=== PATIENT | female | born 1955 | race Caucasian/White ===

== ENCOUNTER 2017-12-15 05:21 | Day surgery (SDC) | payer OTHER ==
[~2017-12-15] VITALS: Ht 167.6 cm; Wt 81.6 kg
--- NOTE | ~2017-12-15 | PATH ---
[facility] [address] [place] [address] PATHOLOGY RPT PROCEDURE Name: TRAVONYNES KERRY Room #: DEP [facility] M.R.#: [id number] Admission: 12/15/17 Date of : 59 Discharge: 12/15/17 Report #: [id number] Path Case #: [id number] [facility] Accession Number: [id number] . 01 Material submitted: . EXCISION MASS EXCISION LIPOMA RIGHT LOWER BACK . 01 Clinician provided ICD-10: R22.9 . 01 Clinical history: . Back mass . 02 Diagnosis: Mature adipose tissue, mass/lipoma right lower back, excision: - Compatible with a lipoma. (IUV:stalin; 12/16/2017) QMS/12/16/2017 . 02 Electronically signed: . Carmela Becerra MD, Pathologist NPI- [id number] . 01 Gross description: . The specimen is received in formalin, labeled "Ynes Cool, mass/lipoma right lower back" and consists of an encapsulated segment of yellow-orange adipose tissue measuring 8.5 x 4.4 x 2.1 cm. It is inked black and sectioned to reveal yellow cut surfaces with multifocal white streaks measuring up to 1.3 cm. No masses are identified and territory sales representative sections are submitted in A1-A4. (SDY; 12/15/2017) SYU/SYU . 02 Pathologist provided ICD-10: D17.79 . 02 CPT . 138645 Specimen Comment: A courtesy copy of this report has been sent to Specimen Comment: [phone]. Specimen Comment: Report sent to Performed at: [address] [id number] MD Alonso Vu MD Phone: [phone] Performed at: 02 [facility] [address] [place] [address] PATHOLOGY RPT PROCEDURE Name: YNES COOL KERRY Room #: DEP [facility]..#: [id number] Admission: 12/15/17 Date of : 59 Discharge: 12/15/17 Report #: [id number] Path Case #: [id number] [address] [place], [place] [id number] MD Carmela Becerra MD Phone: [phone]
--- NOTE | ~2017-12-15 | EKG ---
[address] [address] ELECTROCARDIOGRAM REPORT Name: JUAN COOLALEJANDRA PAYNE Room #: DEP [facility].#: [id number] Admission: 12/15/17 Attend Phys: Jacobo Hansen MD Discharge: 12/15/17 Date of : 59 Report #: [id number] THIS REPORT FOR: //name// [facility] Test Date: 2017-12-15 Test Time: 07:05:50 Pat Name: LAKSHMI COOL Department: Room: 150 5 Gender: F Truck Driver Supervisor: AYDIN : 1955 Requested By: Jacobo Hansen Order Number: [id number] MD: Lyndon Beckwith Measurements Intervals [place] Rate: 63 P: 63 AL: 210 QRS: 46 QRSD: 92 T: 44 QT: 452 QTc: 463 Interpretive Statements Sinus rhythm Prolonged AL interval No previous ECG available for comparison Electronically Signed On 12-15-2017 17:46:17 CDT by Lyndon Beckwith [email or web address] <ELECTRONICALLY SIGNED> By: Lyndon Beckwith MD 12/15/17 1746 0705 4 Lyndon Beckwith MD /MELINDA
--- NOTE | ~2017-12-15 | O ---
[facility] [place] [address] OPERATIVE REPORT Name: LAKSHMI COOL KERRY Room #: DEP [facility] M.R.#: [id number] Admission: 12/15/17 Attend Phys: Jacobo Hansen MD Discharge: 12/15/17 Date of : 59 Report #: [id number] THIS REPORT FOR: //name// CC: Yang Hansen DATE OF SERVICE: 12/15/2017 PREOPERATIVE DIAGNOSIS: Right back mass/lipoma measuring 10 x 8 cm. POSTOPERATIVE DIAGNOSIS: Right back mass/lipoma measuring 10 x 8 cm. PROCEDURES PERFORMED: Excision of right back mass/lipoma. ANESTHESIA: IV sedation, 0.25% Marcaine locally. COMPLICATIONS: None. ESTIMATED BLOOD LOSS: 5 mL. DESCRIPTION OF PROCEDURE: With the patient in the lateral position, the right side was tilted up. Skin was prepped and draped in sterile fashion. Timeout was performed. Marcaine 0.25% was used to anesthetize the skin. A transverse incision was made over the mass. The mass is a distinct, fairly mobile. After incising through the skin and subcutaneous tissue and getting through the subcutaneous fat, the lipoma was identified. Lipoma was sitting in there fairly free and the lipoma was able to be dissected free and removed in total. This was sitting right on top of the fascia of the back. The patient tolerated the procedure well. The subcutaneous tissue was closed with 3-0 PDS. Skin was closed with 4-0 PDS running subcuticular fashion. Steri-Strips, 4 x 4's, OpSite used for dressing. The patient tolerated the procedure. <ELECTRONICALLY SIGNED> By: Jacobo Hansen MD 12/28/17 1153 1118 1212 Jacobo Hansen MD /nt
[~2017-12-15 05:21] MED LIST: BUPROPION HCL150 M1 PO; BYSTOLIC10 MG PO; ESTRACE0.5 MG PO; FENOFIBRATE160 MG PO; HUMALOG100 UNIT/1 SUBQ; HYDROCHLOROTHIA25 M2 PO; LIPITOR 20 MG T20 M1 PO; LISINOPRIL20 MG PO; METFORMIN HCL500 MG PO; MOBIC7.5 MG PO; PAXIL30 MG PO; TRESIBA FL100 UNIT/1 SUBQ; TRESIBA FL200 UNIT/1 SUBQ; TRULICITY0.75 MG/0. SUBQ
[2017-12-15 07:01] VITALS: BP 158/73
[2017-12-15 07:05] LABS: CALCIUM 9.3 mg/dL (8.5-10.1); POTASSIUM 4.2 mmol/L (3.5-5.1)
[2017-12-15 07:11] LABS: ALBUMIN 3.4 g/dL (3.4-5.0); TOTAL BILIRUBIN 0.5 mg/dL (<0.1-1.0); TOTAL PROTEIN 6.6 g/dL (6.4-8.2)
[2017-12-15] MEDS ORDERED: NORCO 5-325 TA1 EACH PO (09:10)
[2017-12-15 09:31] VITALS: BP 158/73
== END 2017-12-15 10:28 | disposition home or self-care (01) ==
LOC: TBA 05:21 → OR 05:21
PROVIDERS: Surgery
DX: D17.1 Benign lipomatous neoplasm of skin and subcutaneous tissue of trunk (principal); I10 Essential (primary) hypertension; E78.5 Hyperlipidemia, unspecified; E11.9 Type 2 diabetes mellitus without complications; F32.9 Major depressive disorder, single episode, unspecified; Z79.4 Long term (current) use of insulin; Z85.528 Personal history of other malignant neoplasm of kidney; Z90.5 Acquired absence of kidney; Z98.51 Tubal ligation status; Z90.49 Acquired absence of other specified parts of digestive tract; Z87.19 Personal history of other diseases of the digestive system; Z90.710 Acquired absence of both cervix and uterus; Z98.41 Cataract extraction status, right eye; Z96.1 Presence of intraocular lens; Z79.899 Other long term (current) drug therapy; Z79.891 Long term (current) use of opiate analgesic; Z98.890 Other specified postprocedural states
CPT/HCPCS: 50010; 50101; 50386; 50417; 54118; 56524; 56526; 62110; 62850; 70005